=== PATIENT | male | born 1955 | race Caucasian/White ===

== ENCOUNTER 2024-05-23 13:11 | Outpatient (CLI) | payer MEDICARE | END 2024-05-23 13:12 | disposition home or self-care (01) | LOC: ULT 13:11 | PROVIDERS: ATTEND Orthopaedic Surgery | DX: M79.604 Pain in right leg (principal); R93.6 Abnormal findings on diagnostic imaging of limbs ==

== ENCOUNTER 2024-06-21 13:41 | Outpatient (CLI) | payer MEDICARE | END 2024-06-21 13:42 | disposition home or self-care (01) | LOC: CT 13:41 | PROVIDERS: ATTEND Orthopaedic Surgery | DX: M17.11 Unilateral primary osteoarthritis, right knee (principal); M25.461 Effusion, right knee ==

== ENCOUNTER 2024-06-26 09:57 | Outpatient (CLI) | payer MEDICARE ==
[2024-06-26 12:18] LABS: #Basophils 0.05 10x3/uL (0.0-0.2); %Basophils 0.7 % (0.0-1.0); %Eosinophils 3.9 % (0.0-10.0); %Lymphocytes 19.3 % (21.0-51.0); %Monocytes 8.4 % (0.0-10.0); %Neutrophils 67.6 % (42.0-75.0); Hematocrit 41.6 % (42.0-52.0); Hemoglobin 14.8 g/dL (14.0-18.0); Mean Corpuscular HGB CONC 35.6 g/dL (32.0-36.0); Mean Corpuscular Hemoglobin 32.8 pg (27.0-31.0); Mean Corpuscular Volume 92.2 fL (78.0-98.0); Mean Platelet Volume 11.6 fL (7.4-10.4); Platelet Count 244 10x3/uL (130-400); RBC Distribution Width 12.3 % (11.5-14.5); Red Blood Cell (RBC) Count 4.51 mill/uL (4.70-6.10)
[2024-06-26 12:24] LABS: Bacteria/HPF None Seen HPF (None Seen); Bilirubin Negative (Negative); Blood, Urine Negative (Negative); Clarity Clear (Clear); Glucose, Urine (Dipstick) Greater than 1000 mg/dL (Negative); Ketone, Urine Negative (Negative); Leukocyte Negative Leu/uL (Negative); Nitrite Negative (Negative); Protein, Urine (Dipstick) Negative (Neg-Trace); RBC/HPF 0-3 HPF (0-3); Specific Gravity, Urine 1.021 (1.002-1.036); Squamous Epithelial 0-3 HPF (0-3); Urobilinogen Normal mg/dL (Less than 2); WBC/HPF 0-3 HPF (0-3)
[2024-06-26 12:33] LABS: Anion Gap 13 mmol/L (10-20); BUN (Urea Nitrogen) 12 mg/dL (8.4-25.7); Calc. Creatinine Clearance 0 mL/min (70-130); Calcium 9.4 mg/dL (7.8-10.44); Carbon Dioxide 25 mmol/L (23-31); Chloride 105 mmol/L (98-107); Estimated GFR 95; Glucose 152 mg/dL (80-115); Potassium 3.6 mmol/L (3.5-5.1); Sodium 139 mmol/L (136-145)
[2024-06-26 12:54] LABS: Prothrombin Time 13.5 sec (12.0-14.7)
== END 2024-06-26 09:58 | disposition home or self-care (01) ==
LOC: LABBT 09:57
PROVIDERS: ATTEND Orthopaedic Surgery
DX: Z01.818 Encounter for other preprocedural examination (principal); M17.11 Unilateral primary osteoarthritis, right knee
CPT/HCPCS: 71046; 80048; 81001; 85025; 85610; 87081; 93005; 93010

== ENCOUNTER 2024-07-02 06:34 | Observation (INO) | payer MEDICARE ==
[2024-06-26 10:39] VITALS: BMI 27.4
[2024-07-02] MEDS ORDERED: Ropivacaine 0.5% HCl/PF (150 MG/30 ML VIAL) ONE (07:54)
[2024-07-02] MEDS ORDERED: fentaNYL 50 mcg/mL 1 mL Vial ONE ×3 (07:54→11:55)
[2024-07-02] MEDS ORDERED: Midazolam HCl 2 mg/2 ml Vial ONE (07:54)
[2024-07-02] MEDS ORDERED: Bupivacaine 0.25% HCL 30 ML VIAL ONE (08:12)
[2024-07-02] MEDS ORDERED: CEFAZOLIN 2 GM VIAL ONE (08:12)
[2024-07-02] MEDS ORDERED: Vancomycin (BATCH) 1.5 GM/300 ML BAG ONE (08:25)
[2024-07-02] MEDS ORDERED: Sodium Chloride 0.9% 100 ML ONE ×2 (08:25→11:29)
[2024-07-02] MEDS ORDERED: Tranexamic Acid 1,000 MG/10 ML VIAL ONE ×3 (08:25→11:27)
[2024-07-02] MEDS ORDERED: PROPOFOL 40 ML ONE (08:38)
[2024-07-02] MEDS ORDERED: Zolpidem Tartrate 5 MG TAB PO PRN ×2 (08:45→10:53)
[2024-07-02] MEDS ORDERED: Promethazine HCl 25 MG/ML VIAL IM PRN ×2 (08:45→10:53)
[2024-07-02] MEDS ORDERED: traMADol HCl 50 MG TAB PO PRN (08:45)
[2024-07-02] MEDS ORDERED: HYDROcodone/Acetaminophen 10/325 mg Tablet PO PRN (08:45)
[2024-07-02] MEDS ORDERED: Ropivacaine 0.2% 550 ML 550 ML NERVE BLCK SCH (08:45)
[2024-07-02] MEDS ORDERED: Ondansetron PF 4 MG/2 ML Vial IVP PRN ×2 (08:45→10:53)
[2024-07-02] MEDS ORDERED: fentaNYL PF 100 MCG/2 ML SYRINGE ONE ×2 (08:46→12:11)
[2024-07-02] MEDS ORDERED: Dexmedetomidine 200 MCG/2 ML VIAL ONE (09:17)
[2024-07-02] MEDS ORDERED: Ondansetron PF 4 MG/2 ML Vial ONE (10:42)
[2024-07-02] MEDS ORDERED: Acetaminophen 325 MG TAB PO PRN (10:53)
[2024-07-02] MEDS ORDERED: diphenhydrAMINE 25 MG CAP PO PRN (10:53)
[2024-07-02] MEDS ORDERED: Gabapentin 300 MG CAP PO PRN (10:54)
[2024-07-02] MEDS ORDERED: Tranexamic Acid 1,000 MG in Sodium Chloride 0.9% 100 ML IVPB SCH (11:00)
[2024-07-02] MEDS ORDERED: Dextrose 50% Abboject 50 ML SYRINGE SLOW IVP PRN (12:30)
[2024-07-02] MEDS ORDERED: Glucagon 1 MG/ML KIT IM PRN (12:30)
[2024-07-02] MEDS ORDERED: Dextrose 5% in Water 1,000 ML IV PRN (12:30)
[2024-07-02] MEDS: Sodium Chloride 0.9% 1,000 ML IV SCH (15:04)
[2024-07-02] MEDS: Ketorolac Tromethamine 30 MG (1 mL) VIAL IVP SCH (15:04)
[2024-07-02] MEDS: HYDROcodone/Acetaminophen 10/325 mg Tablet PO PRN (15:16)
[2024-07-02] MEDS: CEFAZOLIN 2 GM in Sodium Chloride 0.9% 100 ML IVPB SCH (15:17)
[2024-07-02] MEDS: Insulin Lispro 100 UNIT/ML 10 ML VIAL SQ SCH (15:18)
[2024-07-02] MEDS: Vancomycin (BATCH) 1.5 GM in Premix 1 BAG IVPB SCH (21:04)
[2024-07-02] MEDS: Aspirin 81 mg Enteric Coated Tablet PO SCH (21:05)
[2024-07-02] MEDS: metFORMIN 500 MG TAB PO SCH (21:05)
[2024-07-02] MEDS: Atorvastatin Calcium 40 MG TAB PO SCH (21:05)
[2024-07-02] MEDS: Senokot S 8.6-50 MG TAB PO SCH (21:05)
[2024-07-02] MEDS: Ferrous Gluconate 324 MG TAB PO SCH (21:05)
[2024-07-02] MEDS: Carvedilol 6.25 MG TAB PO SCH (21:06)
[2024-07-02] MEDS: hydrALAZINE 25 MG TAB PO SCH (21:06)
[2024-07-03 06:49] LABS: Hematocrit 35.6 % (42.0-52.0); Hemoglobin 12.2 g/dL (14.0-18.0); Mean Corpuscular HGB CONC 34.3 g/dL (32.0-36.0); Mean Corpuscular Hemoglobin 31.4 pg (27.0-31.0); Mean Corpuscular Volume 91.8 fL (78.0-98.0); Mean Platelet Volume 11.3 fL (7.4-10.4); Platelet Count 206 10x3/uL (130-400); RBC Distribution Width 12.7 % (11.5-14.5); Red Blood Cell (RBC) Count 3.88 mill/uL (4.70-6.10)
[2024-07-03] MEDS: Lisinopril 20 MG TAB PO SCH (08:05)
[2024-07-03] MEDS: Hydrochlorothiazide 25 MG TAB PO SCH (08:05)
[2024-07-03] MEDS: Multivitamin W/ Minerals 1 TAB PO SCH (08:06)
[2024-07-03] MEDS: Amlodipine 10 MG TAB PO SCH (08:06)
[2024-07-03] MEDS: Empagliflozin 25 MG TAB PO SCH (08:06)
[2024-07-03] MEDS: Insulin Glargine 30 UNITS/0.3 ML VIAL SC SCH (08:07)
[2024-07-04] MEDS: fentaNYL 50 mcg/mL 1 mL Vial SLOW IVP PRN (01:43)
[2024-07-04 06:41] LABS: #Basophils 0.04 10x3/uL (0.0-0.2); %Basophils 0.5 % (0.0-1.0); %Eosinophils 1.5 % (0.0-10.0); %Lymphocytes 11.3 % (21.0-51.0); %Monocytes 10.3 % (0.0-10.0); %Neutrophils 76.2 % (42.0-75.0); Hematocrit 34.4 % (42.0-52.0); Hemoglobin 11.8 g/dL (14.0-18.0); Mean Corpuscular HGB CONC 34.3 g/dL (32.0-36.0); Mean Corpuscular Hemoglobin 31.8 pg (27.0-31.0); Mean Corpuscular Volume 92.7 fL (78.0-98.0); Mean Platelet Volume 11.1 fL (7.4-10.4); Platelet Count 171 10x3/uL (130-400); RBC Distribution Width 12.7 % (11.5-14.5); Red Blood Cell (RBC) Count 3.71 mill/uL (4.70-6.10)
[2024-07-04 06:45] LABS: Hemoglobin A1c 7.4 % (4.0-6.0)
[2024-07-04 06:57] LABS: Anion Gap 12 mmol/L (10-20); BUN (Urea Nitrogen) 19 mg/dL (8.4-25.7); Calc. Creatinine Clearance 119 mL/min (70-130); Calcium 8.4 mg/dL (7.8-10.44); Carbon Dioxide 25 mmol/L (23-31); Cardiac Risk 2.5 (Less than 4.5); Chloride 105 mmol/L (98-107); Cholesterol 103 mg/dl (< 200 Desired); Estimated GFR 96; Glucose 164 mg/dL (80-115); HDL Cholesterol 41 mg/dL (>60 Neg Risk); LDL Cholesterol, Calculated 43 mg/dL; Potassium 3.7 mmol/L (3.5-5.1); Sodium 138 mmol/L (136-145); Triglycerides 94 mg/dL (Less than 150)
[2024-07-04] MEDS: traMADol HCl 50 MG TAB PO PRN (08:17)
[2024-07-04 12:16] VITALS: BP 165/92; TEMP 98.3
== END 2024-07-04 13:42 ==
LOC: SDC 06:34 → SURG A 14:13
PROVIDERS: ADMIT Orthopaedic Surgery; ATTEND Orthopaedic Surgery
DX: M17.11 Unilateral primary osteoarthritis, right knee (principal); I10 Essential (primary) hypertension; E78.5 Hyperlipidemia, unspecified; E11.9 Type 2 diabetes mellitus without complications; M19.90 Unspecified osteoarthritis, unspecified site; F32.A Depression, unspecified; M54.9 Dorsalgia, unspecified; Z90.49 Acquired absence of other specified parts of digestive tract; Z79.4 Long term (current) use of insulin; Z79.899 Other long term (current) drug therapy
CPT/HCPCS: 0055T; 27447; 64448; 36415; 36416; 80048; 80061; 83036; 85027; 96365; 96367; 96374; 96375; 96376; A4306; C1713; C1776; C1889; G0378; J0665; J1815; J1885; J2250; J2405; J2704; J2795; J3010; J3370